=== PATIENT | female | born 1985 | race Two or more races ===

== ENCOUNTER 2019-02-01 22:45 | Emergency (ER) | payer OTHER ==
[2019-02-01 22:59] VITALS: TEMP 97.7; BMI 23.7
[2019-02-01] MEDS ORDERED: KETOROLAC TROMETHAMINE 30 MG/1 ML VIAL IVPUSH ONE (23:29)
[2019-02-01] MEDS ORDERED: ONDANSETRON 4 MG/2 ML VIAL IVPUSH ONE (23:33)
[2019-02-01] MEDS ORDERED: SODIUM CHLORIDE 0.9% 500 ML INFUS.BAG IV ONE (23:42)
--- NOTE | 2019-02-01 23:42 | PDOC ---
History of Present Illness - General Chief Complaint: Pain Stated Complaint: ABD PAIN Time Seen by Provider: 02/01/19 23:07 History Source: Patient Exam Limitations: No Limitations Past History - Past Medical History Allergies/Adverse Reactions: Allergies Allergy/AdvReac Type Severity Reaction Status Date / Time No Known Allergies Allergy Verified 02/01/19 22:54 Cardiac Disorders: No CVA: No COPD: No Disorders: Yes (cervical CA) - Surgical History Cholecystectomy: Yes - Psycho Social/Smoking Cessation Hx Smoking History: Never smoked Hx Alcohol Use: No Drug/Substance Use Hx: No Review of Systems - Review of Systems Able to Perform ROS?: Yes Is the patient limited Japanese proficient: No *Physical Exam - Vital Signs Last Vital Signs Temp Pulse Resp BP Pulse Ox 97.7 F 80 20 149/95 99 02/01/19 22:54 02/01/19 22:54 02/01/19 22:54 02/01/19 22:54 02/01/19 22:54 ED Treatment Course - LABORATORY CBC & Chemistry Diagram: 02/01/19 23:50 02/01/19 23:50 - RADIOLOGY Radiology Studies Ordered: Category Date Time Status SPIRAL- RENAL-STONE CT [CT] Stat CT Scan 02/01/19 23:29 Ordered Medical Decision Making - Medical Decision Making 02/01/19 23:34 HPI: 33F previously healthy c/o 1 hour of right flank pain radiating to groin. Sudden onset, severe pain, never had before. Associated w/ nausea. Denies dysuria, urgency, hematuria, f/c, cp/sob, vomiting. No h/o renal stones. PMH: cervical cancer s/p hysterectomy 2014; LMP 2014 NKDA Denies smoking, etoh, drugs ROS: CONSTITUTIONAL: Denies F / C RESP: Denies SOB CARD: Denies chest pain, palpitations GI: Endorses right flank pain and nausea. Denies V / D : Denies dysuria, hematuria, frequency, urgency SKIN: Denies rashes NEURO: Denies numbness, tingling, weakness PE: GEN: Non-toxic, acutely in pain, restless and writhing. AAOx3 HEENT: NC/AT, EOMI, PERRLA. No facial asymmetry. Normal voice. Supple neck w/ FROM. CV: S1/S2, RRR, no m/r/g LUNG: CTAB, no wheezes, crackles, rales, rhonchi. GI: +TTP suprapubic and right inguinal crease/flank w/o grimacing. soft, nd, + BS. + rightCVAT versus right paraspinal TTP EXTREMITIES: No obvious deformities of all extremities. SKIN: warm, dry, normal turgor PSYCH: normal mood and affect NEURO: Moving all extremities well. Ambulating w/ normal gait. MDM: 33F w/ 1 hour of acute right flank pain w/ nausea. No hx renal stones. DDx - likely renal stone. Also considering appendicitis, UTI, cystitis, pyelonephritis - CBC, CMP - UA - NS, toradol, and zofran - Spiral CT 02/02/19 00:43 - Toradol did not help w/ the pain too much - add tylenol - awaiting spiral CT 02/02/19 01:44 - f/u CT read - escalate to 2mg morphine for pain ctrl as reassessment shows pt still in severe pain 02/02/19 03:[address] IOC IMPRESSION: FINDINGS: Lung bases are clear. The visualized cardiac chambers are normal size and configuration. Status post cholecystectomy without biliary duct dilation. Normal liver, gallbladder, pancreas, spleen, adrenal glands and kidneys. The stomach and abdominal small and large bowel are normal. There is no aortic aneurysm. There is no significant retroperitoneal lymphadenopathy. The pelvic small and large bowel are normal. The appendix is normal. Status post hysterectomy. The ovaries appear normal.. Urinary bladder is unremarkable. 2 mm calcification in the midline of the vagina could represent a urethral stone. There is no pelvic free fluid. No discrete pelvic lymphadenopathy is identified. IMPRESSION: Possible 2 mm urethral stone without bladder inflammation or hydronephrosis. No other localizing findings for acute pathology. If pain decreased w/ morphine, dispo home w/ PCP f/u and return precautions If not, admit for intractable pain 02/02/19 03:48 pt feeling better would like to go home dc home w/ pcp f/u and urology f/u, return precautions Discharge - Discharge Information Problems reviewed: Yes Clinical Impression/Diagnosis: Urethral stone Condition: Stable Disposition: HOME - Admission No - Follow up/Referral Referrals: Caryn Schultz MD [Primary Care Provider] - Mik Irving MD [Staff Physician] - - Patient Discharge Instructions Patient Printed Discharge Instructions: DI for Kidney Stones Additional Instructions: Drink plenty of fluids. Take Naproxen (e.g. Aleeve) as directed by the label for pain Follow up with your primary care doctor in the next 3-5 days regarding this Emergency Department visit. Follow up with a UROLOGIST in the next 3-5 days regarding this visit. We have referred you to Dr. Irving if you need a Urologist, you can call and schedule an appointment with the number provided. IMMEDIATELY return to the Emergency Department if you experience any of the following: - worsening symptoms - fevers - ANYTHING THAT CONCERNS YOU - Post Discharge Activity Work/Back to School Note: Back to Work
[2019-02-01] MEDS ORDERED: ONDANSETRON 4 MG/2 ML VIAL ONE (23:44)
[2019-02-01] MEDS ORDERED: KETOROLAC TROMETHAMINE 30 MG/1 ML VIAL ONE (23:44)
--- NOTE | 2019-02-01 23:44 | PDOC ---
Documentation entered by Brie Cortés SCRIBE, acting as scribe for Keren Manzano MD. Keren Manzano MD: This documentation has been prepared by the morganibe, Brie Cortés SCRIBE, under my direction and personally reviewed by me in its entirety. I confirm that the documentation accurately reflects all work, treatment, procedures, and medical decision making performed by me. Attending Attestation - Resident Resident Name: Tk Hernandez - ED Attending Attestation I have performed the following: I have examined & evaluated the patient, The case was reviewed & discussed with the resident, I agree w/resident's findings & plan, Exceptions are as noted - HPI HPI: 02/01/19 23:23 The patient is a 33-year-old female with a past medical history significant for Cervical CA, who presents to the emergency department with 1 hour of left flank pain radiating to her groin associated with nausea. Allergies: NKDA - Physicial Exam PE: 02/01/19 23:32 Well-nourished well-developed 33-year-old female who developed sudden Right flank pain radiating to her groin associated with nausea head ncat neck supple lungs cta b/l cvs [id number] abd rt groin tenderness,no rebound, no guarding rt flank pain neuro axox3,ambulatory - Medical Decision Making 02/02/19 00:05 diff diagnosis includes nephrolithisis,appendicitis,pyelonephritis,cystitis 02/02/19 00:07 02/02/19 01:43 ct scan spiral ordered
[2019-02-02] MEDS ORDERED: ACETAMINOPHEN 1000 MG/100 ML VIAL (NON FORMULARY) IVPB ONE (00:31)
[2019-02-02] MEDS ORDERED: ACETAMINOPHEN INJECTION 100 ML IVPB ONE (00:35)
[2019-02-02 00:58] LABS: ALBUMIN 3.9 g/dl (3.4-5.0); BILIRUBIN,TOTAL 0.2 mg/dL (0.2-1); CALCIUM 9.2 mg/dL (8.5-10.1); CREATININE 0.5 mg/dL (0.55-1.3); POTASSIUM 4.5 mmol/L (3.5-5.1); TOT PROT 7.1 g/dl (6.4-8.2)
[2019-02-02 01:07] LABS: BASO % 0.6 % (0-2.0); EOS % 4.7 % (0-4.5); HEMATOCRIT 39.2 % (32.4-45.2); HEMOGLOBIN 13.2 GM/dL (10.7-15.3); LYMPH % 30.7 % (8-40); MCH 30.7 pg (25.7-33.7); MCHC 33.8 g/dl (32.0-36.0); MEAN CELL VOLUME 90.8 fl (80-96); MEAN PLT VOLUME 9.1 fl (7.5-11.1); MONO % 3.9 % (3.8-10.2); NEUT % 60.1 % (42.8-82.8); PLATELET COUNT 255 K/MM3 (134-434); RBC 4.31 M/mm3 (3.60-5.2); RDW 12.9 % (11.6-15.6); WHITE BLOOD COUNT 9.2 K/mm3 (4.0-10.0)
[2019-02-02] MEDS ORDERED: morphine CARPU-JECT 2 MG/1 ML DISP.SYRIN IVPUSH ONE (01:44)
[2019-02-02 01:54] LABS: PH,URINE >= 9.0 (5.0-8.0); URINE APPEARANCE TURBID; URINE BILIRUBIN NEGATIVE (NEGATIVE); URINE COLOR YELLOW; URINE GLUCOSE (UA) NEGATIVE (NEGATIVE); URINE KETONE NEGATIVE (NEGATIVE); URINE LEUK ESTERASE NEGATIVE (NEGATIVE); URINE NITRITE NEGATIVE (NEGATIVE); URINE PROTEIN NEGATIVE (NEGATIVE); URINE UROBILINOGEN 0.2 mg/dL (0.2-1.0)
[2019-02-02] MEDS ORDERED: MORPHINE SULFATE 2 MG/ML VIAL ONE (02:59)
[2019-02-02 04:58] VITALS: BP 144/91; PULSE 76
== END 2019-02-02 04:10 | disposition home or self-care (01) ==
LOC: JER 22:45
PROC: 3E033GC Introduction of Other Therapeutic Substance into Peripheral Vein, Percutaneous Approach (ICD-10-PCS; principal; 2019-02-01)
PROC: 3E033NZ Introduction of Analgesics, Hypnotics, Sedatives into Peripheral Vein, Percutaneous Approach (ICD-10-PCS; 2019-02-01)
PROC: 3E033NZ Introduction of Analgesics, Hypnotics, Sedatives into Peripheral Vein, Percutaneous Approach (ICD-10-PCS; 2019-02-01)
PROC: 3E0333Z Introduction of Anti-inflammatory into Peripheral Vein, Percutaneous Approach (ICD-10-PCS; 2019-02-01)
DX: N21.1 Calculus in urethra (principal); Z85.41 Personal history of malignant neoplasm of cervix uteri
CPT/HCPCS: 36415; 74176-TC; 80053; 81003; 85025; 96374; 96375; 99283-25; J0131